=== PATIENT | female | born 2000 | race Caucasian/White ===

== ENCOUNTER 2018-11-13 03:56 | Emergency (ER) | payer BC, SELFPAY ==
--- NOTE | 2018-11-13 03:59 | ED.CHESTPAIN ---
HPI - Chest Pain General Chief Complaint: Chest Pain Stated Complaint: Chest pain / SOB Time Seen by Provider: 11/13/18 03:59 Source: patient Mode of arrival: ambulatory Limitations: no limitations History of Present Illness HPI narrative: 18-year-old female, occasional smoker presents with a chief complaint of episodes of chest pain since about 11:00 p.m.. It started as a sharp and stabbing pain in her central chest and she denies any radiation. She states the pain hurts with a deep breath and improves with rest. Additionally it hurts with motion and palpation. She has had no fever chills. About 2-3 weeks ago the patient had flu and bronchitis but has not had much noise sneezing or coughing since. She denies any injury nor fever or chills. She denies any productive cough. She denies recent travel, history of blood clot, cancer or hemoptysis. MD complaint: chest pain Onset (ago): hour(s) Duration: intermittent Onset: during rest Pain location: substernal Severity: mild Quality: sharp Pain radiation: none Relieving factors: rest Exacerbating factors: inspiration and palpation Context: recent illness Treatments prior to arrival chest pain: none Related Data Allergies Allergy/AdvReac Type Severity Reaction Status Date / Time No Known Drug Allergies Allergy Verified 11/13/18 04:34 Review of Systems Constitutional Denies chills, Denies fever(s), Denies lethargy and Denies weakness Eyes Denies change in vision, Denies eye discharge, Denies irritation and Denies loss of vision ENT Ears, Nose, Mouth, and Throat: Denies change in voice, Denies neck pain and Denies sore throat Cardiovascular Reports chest pain, Denies irregular heart rhythm, Denies lightheadedness, Denies palpitations, Denies dyspnea, Denies dyspnea on exertion and Denies orthopnea Respiratory Denies cough, Denies dyspnea, Denies dyspnea on exertion and Denies wheezing Gastrointestinal Gastrointestinal: Denies abdominal pain, Denies change in bowel habits, Denies diarrhea, Denies nausea and Denies vomiting Genitourinary Denies hematuria, Denies flank pain, Denies urinary incontinence and Denies urinary urgency Musculoskeletal Denies neck pain Integumentary/Breasts Denies pruritus, Denies erythema, Denies rash and Denies wounds Neurologic Denies confusion, Denies loss of vision and Denies weakness Psychiatric Denies anxiety, Denies confusion, Denies depression, Denies homicidal ideation and Denies suicidal ideation Endocrine Denies palpitations Hematologic/Lymphatic Denies easy bruising Allergic/Immunologic Denies wheezing PFSH Social History Smoking Status: Current some day smoker Social History Smoking Status: Current some day smoker Exam Narrative Exam Narrative: GENERAL: 18-year-old female resting comfortably, anxious HEAD: Atraumatic. Normocephalic. No temporal or scalp tenderness. EYES: Pupils equal round and reactive. Extraocular motions intact. No scleral icterus. No injection or drainage. ENT: Nose without bleeding, purulent drainage or septal hematoma. Throat without erythema, tonsillar hypertrophy or exudate. Uvula midline. Airway patent. NECK: Trachea midline. No JVD or lymphadenopathy. Supple, nontender, no meningeal signs. CARDIOVASCULAR: Regular rate and rhythm without murmurs, gallops, or rubs. RESPIRATORY: Clear to auscultation. Breath sounds equal bilaterally. No wheezes, rales, or rhonchi. Reproducible epigastric and anterior chest pain GASTROINTESTINAL: Abdomen soft, non-tender, nondistended. No hepato-splenomegaly, or palpable masses. No guarding. EXTREMITIES: No clubbing, cyanosis, or edema. No joint tenderness, effusion, or edema noted. BACK: Nontender without deformity or crepitance. No flank tenderness. NEURO: AOx3. SKIN: No rash or erythema. Initial Vital Signs Initial Vital Signs: Vital Signs Temperature 98.5 F 11/13/18 04:00 Pulse Rate 82 11/13/18 04:00 Respiratory Rate 16 11/13/18 04:00 Blood Pressure 122/78 11/13/18 04:00 Pulse Oximetry 100 11/13/18 04:00 Course Orders Ordered: ED Orders 11/13/18 EKG-12 Lead Stat 11/13/18 04:08 XR chest 2V Stat 11/13/18 04:22 Complete Blood Count AUTO DIFF Stat Comprehensive Metabolic Panel Stat Lipase Stat Troponin I Stat Discontinued Medications Ketorolac Tromethamine (Toradol) 30 mg IM NOW ONE Stop: 11/13/18 04:10 Last Admin: 11/13/18 04:14 Dose: 30 mg Vital Signs - 8 hr 11/13/18 04:00 Temperature 98.5 F Pulse Rate 82 Respiratory Rate 16 Blood Pressure 122/78 Pulse Oximetry 100 MDM - Chest Pain Differential Diagnosis Likely pneumothorax, stable angina, unstable angina pectoris, atypical chest pain, st elevation myocardial infarction, chest pain and biliary colic Medical Records Data Attestation: I reviewed the patient's medical records. Lab Data Attestation: I reviewed the patient's lab results. Result diagrams: 11/13/18 04:22 11/13/18 04:22 Lab Results 11/13/18 Range/Units 04:22 WBC 10.0 (4.5-11.0) X10^3/uL RBC 4.87 (4.0-5.2) X10^6/uL Hgb 15.5 (12.0-16.0) g/dL Hct 44.8 (36-46) % MCV 92.0 (80-100) fL MCH 31.9 (26-34) PG MCHC 34.6 (30-36) % RDW 13.3 (11.6-14.8) % Plt Count 203 (150-400) X10^3/uL Neut % (Auto) 76.9 H (50-75) % Lymph % (Auto) 15.1 L (25-40) % [place] % (Auto) 5.3 (3-14) % Eos % (Auto) 2.1 (2-4) % Baso % (Auto) 0.6 (0-2) % Neut # (Auto) 7700 H (6698-5327) /uL Lymph # (Auto) 1500 (9051-6696) /uL [place] # (Auto) 500 (0-900) /uL Eos # (Auto) 200 (0-450) /uL Baso # (Auto) 100 (0-100) /uL ECG Data Attestation: I personally reviewed and interpreted this ECG as follows: Prior ECG tracings: not available for review Interpretation: EKG is normal sinus rhythm rate [67 ] and free of any signs of ischemia or ectopy. No ST segmental elevation or depression. No T wave inversions Discharge Plan Departure Patient Disposition: Home Clinical Impression: Atypical chest pain, Acute costochondritis Instructions: DI for Atypical Chest Pain Activity Restrictions/Additional Instructions: *You have been diagnosed with [ atypical chest pain, costochondritis ] *What to do: *Take medications as directed: tylenol / motrin for pain *Follow up with your primary care provider in 2-3 days, call for an appointment. Let them know you were seen in the Emergency Department and that we ask that you be seen in follow up *Return to ER if you should have any new, worsening or concerning symptoms
[2018-11-13 04:00] VITALS: BP 122/78; PULSE 82; RESP 16; TEMP 36.9; O2SAT 100; BMI 28.2
--- NOTE | 2018-11-13 04:08 | DI.RAD.S_ITS ---
PROCEDURE: XR CHEST 2V INDICATIONS: shortness of breath TECHNIQUE: 2 views of the chest were acquired. COMPARISON: None. FINDINGS: Surgical changes and devices: None. Lungs and pleura: Lungs are clear. No pleural effusions or pneumothorax. Mediastinum: Mediastinal contours are normal. Heart size is normal. Bones and chest wall: No suspicious bony abnormalities. Soft tissues appear unremarkable. IMPRESSION: No acute cardiopulmonary disease process. Dictated by: Leidy Nelson MD, PhD on 11/13/2018 at 8:16 Approved by: Leidy Nelson MD, PhD on 11/13/2018 at 8:17
[2018-11-13] MEDS: KETOROLAC 60 MG/2 ML VIAL 30 MG IM (04:14)
[2018-11-13 04:36] LABS: Add Manual Diff / Slide Review NO; Basophils Absolute Auto 100 /uL (0-100); Basophils Percent Auto 0.6 % (0-2); Eosinophils Absolute Auto 200 /uL (0-450); Eosinophils Percent Auto 2.1 % (2-4); Hematocrit 44.8 % (36-46); Hemoglobin 15.5 g/dL (12.0-16.0); Lymphocytes Absolute Auto 1500 /uL (1100-4500); Lymphocytes Percent Auto 15.1 % (25-40); Mean Corpuscular HGB Conc 34.6 % (30-36); Mean Corpuscular Hemoglobin 31.9 PG (26-34); Monocytes Absolute Auto 500 /uL (0-900); Monocytes Percent Auto 5.3 % (3-14); Neutrophils Absolute Auto 7700 /uL (1500-7000); Neutrophils Percent Auto 76.9 % (50-75); Platelet Count 203 X10^3/uL (150-400); Red Blood Cell Count 4.87 X10^6/uL (4.0-5.2); Red Cell Distribution Width 13.3 % (11.6-14.8)
[2018-11-13 04:40] LABS: HEMOLYSIS < 15 (0-50); Sodium 141 mmol/L (137-145)
[2018-11-13 04:43] LABS: Alanine Aminotransferase 28 IU/L (9-52); Albumin 4.7 g/dL (3.5-5.0); Albumin Globulin Ratio 1.6 (1.0-2.8); Alkaline Phosphatase 54 U/L (38-126); Aspartate Aminotransferase 23 IU/L (14-36); Bilirubin Total 0.5 mg/dL (0.2-1.3); Blood Urea Nitrogen 18 mg/dL (7-17); Calcium 9.9 mg/dL (8.4-10.2); Carbon Dioxide 26 mmol/L (22-32); Chloride 105 mmol/L (98-107); Estimated Glomerular Filt Rate > 60.0 mL/min (>60); Globulin 2.9 g/dL (1.7-4.1); Glucose 97 mg/dL (70-100); Lipase 164 U/L (23-300); Potassium 4.6 mmol/L (3.4-5.1); Total Protein 7.6 g/dL (6.3-8.2)
--- NOTE | 2018-11-13 04:48 | ED_ITS ---
HPI - Chest Pain General Chief Complaint: Chest Pain Stated Complaint: Chest pain / SOB Time Seen by Provider: 11/13/18 03:59 Source: patient Mode of arrival: ambulatory Limitations: no limitations History of Present Illness HPI narrative: 18-year-old female, occasional smoker presents with a chief complaint of episodes of chest pain since about 11:00 p.m.. It started as a sharp and stabbing pain in her central chest and she denies any radiation. She states the pain hurts with a deep breath and improves with rest. Additionally it hurts with motion and palpation. She has had no fever chills. About 2-3 weeks ago the patient had flu and bronchitis but has not had much noise sneezing or coughing since. She denies any injury nor fever or chills. She denies any productive cough. She denies recent travel, history of blood clot, cancer or hemoptysis. MD complaint: chest pain Onset (ago): hour(s) Duration: intermittent Onset: during rest Pain location: substernal Severity: mild Quality: sharp Pain radiation: none Relieving factors: rest Exacerbating factors: inspiration and palpation Context: recent illness Treatments prior to arrival chest pain: none Related Data Allergies Allergy/AdvReac Type Severity Reaction Status Date / Time No Known Drug Allergies Allergy Verified 11/13/18 04:34 Review of Systems Constitutional Denies chills, Denies fever(s), Denies lethargy and Denies weakness Eyes Denies change in vision, Denies eye discharge, Denies irritation and Denies loss of vision ENT Ears, Nose, Mouth, and Throat: Denies change in voice, Denies neck pain and Denies sore throat Cardiovascular Reports chest pain, Denies irregular heart rhythm, Denies lightheadedness, Denies palpitations, Denies dyspnea, Denies dyspnea on exertion and Denies orthopnea Respiratory Denies cough, Denies dyspnea, Denies dyspnea on exertion and Denies wheezing Gastrointestinal Gastrointestinal: Denies abdominal pain, Denies change in bowel habits, Denies diarrhea, Denies nausea and Denies vomiting Genitourinary Denies hematuria, Denies flank pain, Denies urinary incontinence and Denies urinary urgency Musculoskeletal Denies neck pain Integumentary/Breasts Denies pruritus, Denies erythema, Denies rash and Denies wounds Neurologic Denies confusion, Denies loss of vision and Denies weakness Psychiatric Denies anxiety, Denies confusion, Denies depression, Denies homicidal ideation and Denies suicidal ideation Endocrine Denies palpitations Hematologic/Lymphatic Denies easy bruising Allergic/Immunologic Denies wheezing PFSH Social History Smoking Status: Current some day smoker Social History Smoking Status: Current some day smoker Exam Narrative Exam Narrative: GENERAL: 18-year-old female resting comfortably, anxious HEAD: Atraumatic. Normocephalic. No temporal or scalp tenderness. EYES: Pupils equal round and reactive. Extraocular motions intact. No scleral icterus. No injection or drainage. ENT: Nose without bleeding, purulent drainage or septal hematoma. Throat without erythema, tonsillar hypertrophy or exudate. Uvula midline. Airway patent. NECK: Trachea midline. No JVD or lymphadenopathy. Supple, nontender, no meningeal signs. CARDIOVASCULAR: Regular rate and rhythm without murmurs, gallops, or rubs. RESPIRATORY: Clear to auscultation. Breath sounds equal bilaterally. No wheezes , rales, or rhonchi. Reproducible epigastric and anterior chest pain GASTROINTESTINAL: Abdomen soft, non-tender, nondistended. No hepato-splenomegaly , or palpable masses. No guarding. EXTREMITIES: No clubbing, cyanosis, or edema. No joint tenderness, effusion, or edema noted. BACK: Nontender without deformity or crepitance. No flank tenderness. NEURO: AOx3. SKIN: No rash or erythema. Initial Vital Signs Initial Vital Signs: Vital Signs Temperature 98.5 F 11/13/18 04:00 Pulse Rate 82 11/13/18 04:00 Respiratory Rate 16 11/13/18 04:00 Blood Pressure 122/78 11/13/18 04:00 Pulse Oximetry 100 11/13/18 04:00 Course Orders Ordered: ED Orders 11/13/18 EKG-12 Lead Stat 11/13/18 04:08 XR chest 2V Stat 11/13/18 04:22 Complete Blood Count AUTO DIFF Stat Comprehensive Metabolic Panel Stat Lipase Stat Troponin I Stat Discontinued Medications Ketorolac Tromethamine (Toradol) 30 mg IM NOW ONE Stop: 11/13/18 04:10 Last Admin: 11/13/18 04:14 Dose: 30 mg Vital Signs - 8 hr 11/13/18 04:00 Temperature 98.5 F Pulse Rate 82 Respiratory Rate 16 Blood Pressure 122/78 Pulse Oximetry 100 MDM - Chest Pain Differential Diagnosis Likely pneumothorax, stable angina, unstable angina pectoris, atypical chest pain, st elevation myocardial infarction, chest pain and biliary colic Medical Records Data Attestation: I reviewed the patient's medical records. Lab Data Attestation: I reviewed the patient's lab results. Result diagrams: 11/13/18 04:22 11/13/18 04:22 Lab Results 11/13/18 Range/Units 04:22 WBC 10.0 (4.5-11.0) X10^3/uL RBC 4.87 (4.0-5.2) X10^6/uL Hgb 15.5 (12.0-16.0) g/dL Hct 44.8 (36-46) % MCV 92.0 (80-100) fL MCH 31.9 (26-34) PG MCHC 34.6 (30-36) % RDW 13.3 (11.6-14.8) % Plt Count 203 (150-400) X10^3/uL Neut % (Auto) 76.9 H (50-75) % Lymph % (Auto) 15.1 L (25-40) % [place] % (Auto) 5.3 (3-14) % Eos % (Auto) 2.1 (2-4) % Baso % (Auto) 0.6 (0-2) % Neut # (Auto) 7700 H (3142-7459) /uL Lymph # (Auto) 1500 (6687-2070) /uL [place] # (Auto) 500 (0-900) /uL Eos # (Auto) 200 (0-450) /uL Baso # (Auto) 100 (0-100) /uL ECG Data Attestation: I personally reviewed and interpreted this ECG as follows: Prior ECG tracings: not available for review Interpretation: EKG is normal sinus rhythm rate [67 ] and free of any signs of ischemia or ectopy. No ST segmental elevation or depression. No T wave inversions Discharge Plan Departure Patient Disposition: Home Clinical Impression: Atypical chest pain, Acute costochondritis Instructions: DI for Atypical Chest Pain Activity Restrictions/Additional Instructions: *You have been diagnosed with [ atypical chest pain, costochondritis ] *What to do: *Take medications as directed: tylenol / motrin for pain *Follow up with your primary care provider in 2-3 days, call for an appointment. Let them know you were seen in the Emergency Department and that we ask that you be seen in follow up *Return to ER if you should have any new, worsening or concerning symptoms
[2018-11-13 04:53] VITALS: BP 105/65; PULSE 77; RESP 17; O2SAT 99
[2018-11-13 04:56] LABS: Troponin I < 0.012 ng/mL (0.01-0.034)
[2018-11-13 05:11] VITALS: BP 110/70; PULSE 61; RESP 16; O2SAT 98
== END 2018-11-13 05:11 | disposition home or self-care (01) ==
PROVIDERS: Emergency Provider Emergency Medicine
DX: M94.0 Chondrocostal junction syndrome [Tietze] (principal); R07.89 Other chest pain
CPT/HCPCS: 36415; 71046; 80053; 83690; 84484; 85025; 93005; 96372; 99282; 99285; J1885

== ENCOUNTER → 2021-11-16 10:44 | Outpatient (CLI) | payer BC, MEDICAID, SELFPAY ==
--- NOTE | 2021-11-16 10:44 | DI.US.S_ITS ---
PROCEDURE: US OB <= 14 WEEKS FETUS INDICATIONS: DATES OUTSIDE/PRIOR DATING DATA: Last menstrual period (LMP): Unknown. LMP-based estimated date of delivery (GRIFFIN): Not applicable. First dating scan (date and location): 11/16/2021. Estimated date of delivery (GRIFFIN) from first dating scan: 07/17/2022. TECHNIQUE: Real-time scanning was performed of the fetus and maternal pelvic organs, with image documentation. Endovaginal scanning was also performed to better visualize the fetus and maternal ovaries. COMPARISON: None. FINDINGS: There is an intrauterine gestational sac measuring 5 mm, corresponding to a 5 week 2 day gestation. No cardiac activity is seen. No yolk sac is seen. No pole. Maternal organs: Ovaries right ovarian corpus luteal cyst is present. Left ovary within normal limits.. IMPRESSION: 1. Intrauterine gestational sac without pole or yolk sac seen. Continued clinical and sonographic follow-up is recommended to assess for viability. We strive to produce accurate, complete, and clear reports of imaging services. To assist us in improving patient care, this report was composed using standard report templates and voice recognition software. Therefore, it may contain abnormal punctuation, insertions and/or omissions. Occasional wrong-word or sound-alike substitutions may occur. Though we review the report and make efforts to correct it, we do recommend that the report be read carefully in proper context to recognize any text inaccuracies. Dictated by: Sam Naranjo M.D. on 11/16/2021 at 15:18 Approved by: Sam Naranjo M.D. on 11/16/2021 at 16:15
== END ==
PROVIDERS: Referring Provider Obstetrics & Gynecology; Visit Provider Obstetrics & Gynecology
DX: Z36.87 Encounter for antenatal screening for uncertain dates (principal); O36.80X0 Pregnancy with inconclusive fetal viability, not applicable or unspecified
CPT/HCPCS: 76801; 76817

== ENCOUNTER → 2021-12-22 15:11 | Outpatient (CLI) | payer BC, MEDICAID, SELFPAY ==
[2021-12-22 16:09] LABS: Specimen Label NATERA KIT
== END ==
PROVIDERS: Referring Provider Obstetrics & Gynecology; Visit Provider Obstetrics & Gynecology
DX: Z34.81 Encounter for supervision of other normal pregnancy, first trimester (principal)
CPT/HCPCS: 36415

== ENCOUNTER → 2022-02-08 16:33 | Outpatient (CLI) | payer BC, MEDICAID, SELFPAY ==
[2022-02-08 17:36] LABS: Add Manual Diff / Slide Review NO; Basophils Absolute Auto 0 /uL (0-100); Basophils Percent Auto 0.5 % (0-2); Eosinophils Absolute Auto 300 /uL (0-450); Eosinophils Percent Auto 2.8 % (2-4); Hematocrit 36.3 % (36-46); Hemoglobin 12.8 g/dL (12.0-16.0); Lymphocytes Absolute Auto 2100 /uL (1100-4500); Lymphocytes Percent Auto 22.6 % (25-40); Mean Corpuscular HGB Conc 35.4 % (30-36); Mean Corpuscular Hemoglobin 32.1 PG (26-34); Mean Corpuscular Volume 90.8 fL (80-100); Monocytes Absolute Auto 900 /uL (0-900); Monocytes Percent Auto 9.3 % (3-14); Neutrophils Absolute Auto 6100 /uL (1500-7000); Neutrophils Percent Auto 64.8 % (50-75); Platelet Count 193 X10^3/uL (150-400); Red Cell Distribution Width 13.2 % (11.6-14.8); White Blood Cell Count 9.4 X10^3/uL (4.5-11.0)
[2022-02-08 20:36] LABS: Hepatitis B Surface Antigen NEGATIVE s/c (NEGATIVE); Rubella Antibody IgG 37.3 IU/mL (>15)
[2022-02-08 20:43] LABS: HIV 1 & 2 Ab/Ag 4th Gen Combo NEGATIVE (NEGATIVE); Hep C Virus Ab w/Reflex Quant NEGATIVE s/c (NEGATIVE)
[2022-02-10 07:11] LABS: Varicella IgG Antibody 191 index (Immune >165)
[2022-02-10 08:05] LABS: RPR Screen Non Reactive (Non Reactive)
== END ==
PROVIDERS: Referring Provider Obstetrics & Gynecology; Visit Provider Obstetrics & Gynecology
DX: Z34.81 Encounter for supervision of other normal pregnancy, first trimester (principal); Z3A.08 8 weeks gestation of pregnancy
CPT/HCPCS: 36415; 80055; 86787; 86803; 86850; 86900; 86901; 87389

== ENCOUNTER → 2022-03-08 12:57 | Outpatient (CLI) | payer BC, OTHER, MEDICAID, SELFPAY ==
--- NOTE | 2022-03-08 12:58 | DI.US.S_ITS ---
PROCEDURE: US OB >= 14 WEEKS FETUS INDICATIONS: 20 Week Anatomy Scan OUTSIDE/PRIOR DATING DATA: Last menstrual period (LMP): Unknown. LMP-based estimated date of delivery (GRIFFIN): Unknown. First dating scan (date and location): 12/13/2021. Estimated date of delivery (GRIFFIN) from first dating scan: 07/20/2022. TECHNIQUE: Real-time scanning was performed of the fetus, with image documentation and biometric measurements. COMPARISON: [facility], US, OB >= 14 WEEKS FETUS, 02/08/2022, 16:31. FINDINGS: General: A single living intrauterine gestation is present. Presentation: Breech. Placenta: Placental position is posterior , without previa. Amniotic fluid index: 15 cm, normal range is 5-24 cm. heart rate: 155 beats per minute. Maternal cervical canal: 4.4 cm long. Normal lower limit is 2.5 cm. biometrics: Biparietal diameter: 5.0 cm 21 weeks 1 day Head circumference: 18.9 cm 21 weeks 2 days Abdominal circumference: 16.3 cm 21 weeks 3 days Femur length: 3.7 cm 21 weeks 6 days Composite gestational age from initial scan: 20 weeks 6 days Composite gestational age from present scan: 21 weeks 3 days Estimated weight and percentile: 432 g, 81st percentile Anatomic survey: Neuro: Ventricles are non-dilated at less than 10 mm. Cisterna magna is normal at 3-11 mm. Cerebellum is normal in size and morphology. Nuchal skin fold: Normal at less than 6 mm between 14-21 weeks gestational age. Face: Nose and lips, facial profile are normal. Spine: No evidence for spina bifida. Heart: 4-chambered heart is present, with normal ventricular outflow tracts. Diaphragm: Diaphragm is intact. Stomach: Left-sided stomach is present. Kidneys: No hydronephrosis. Normal is less than 5 mm in 2nd trimester, less than 7 mm in 3rd trimester. Cord: 3-vessel cord has orthotopic insertion. Bladder: Normal in size. Extremities: All 4 extremities identified. IMPRESSION: Single live intrauterine with ultrasound gestational age today of 21 weeks 3 days. Anatomy is within normal limits. We strive to produce accurate, complete, and clear reports of imaging services. To assist us in improving patient care, this report was composed using standard report templates and voice recognition software. Therefore, it may contain abnormal punctuation, insertions and/or omissions. Occasional wrong-word or sound-alike substitutions may occur. Though we review the report and make efforts to correct it, we do recommend that the report be read carefully in proper context to recognize any text inaccuracies. Dictated by: Jennifer Martinez M.D. on 03/08/2022 at 16:32 Approved by: Jennifer Martinez M.D. on 03/08/2022 at 16:34
== END ==
PROVIDERS: Referring Provider Obstetrics & Gynecology; Visit Provider Obstetrics & Gynecology
DX: Z34.82 Encounter for supervision of other normal pregnancy, second trimester (principal); Z3A.21 21 weeks gestation of pregnancy
CPT/HCPCS: 76811

== ENCOUNTER → 2022-03-14 15:02 | Outpatient (CLI) | payer BC, OTHER, MEDICAID, SELFPAY ==
[2022-03-14 20:33] LABS: Urine N gonorrhoeae NOT DETECTED
[2022-03-14 20:34] LABS: Urine Chlamydia NOT DETECTED
[2022-03-16 21:58] LABS: AFP Value 56.1 ng/mL (.); Gest Age on Col Date 21.7 weeks (.); Gestational Age Ultrasound (.); Insulin Dep Diabetes No (.); OSBR Risk 1IN 10000 (.); Results Report (.); Test Results *Screen Negative* (.)
== END ==
PROVIDERS: Referring Provider Obstetrics & Gynecology; Visit Provider Obstetrics & Gynecology
DX: Z34.82 Encounter for supervision of other normal pregnancy, second trimester (principal); Z3A.21 21 weeks gestation of pregnancy
CPT/HCPCS: 36415; 82105; 87086; 87491; 87591

== ENCOUNTER 2022-04-03 17:42 | Emergency (ER) | payer BC, OTHER, MEDICAID, SELFPAY ==
[2022-04-03] VITALS (8 sets, daily range): BP systolic 111–117; BP diastolic 57–65; PULSE 116–148; RESP 18; TEMP 37–38.4; O2SAT 95–98; BMI 32.4
[2022-04-03] MEDS: ACETAMINOPHEN 325 MG TABLET 975 MG PO (18:00)
[2022-04-03 20:04] LABS: Influenza A - CEPHEID Flu A NEGATIVE (NEGATIVE); Influenza B - CEPHEID Flu B NEGATIVE (NEGATIVE); Respiratory Syncytial Virus Negative (Negative)
--- NOTE | 2022-04-03 20:18 | ED.URI ---
HPI - URI/Sore Throat General Chief Complaint: Upper Respiratory Symptoms Stated Complaint: COUGH SORE THROAT FEVER CHEST HURTS Time Seen by Provider: 04/03/22 20:03 Source: patient Mode of arrival: Ambulatory History of Present Illness HPI Narrative: Patient is a 22-year-old female who is currently 6 months presenting with fever sore throat. Says he has body aches fever chills ongoing for 1 day. Her chest hurts. She generally did not feel well. She is noted to be febrile and tachycardic here in the ED. she says she has a hard time feeding her throat hurt so badly. Related Data Home Medications Medication Instructions Recorded Confirmed omeprazole 20 mg tablet,delayed 20 mg PO DAILY 11/29/21 03/14/22 release prenat.vits,raul,lox-oeuv-fqomv 1 tab PO DAILY 12/07/21 03/14/22 Previous Rx's Medication Instructions Recorded ondansetron 4 mg disintegrating 4 mg PO Q6H PRN nausea and 11/23/21 tablet vomiting #30 tabs fluconazole 150 mg tablet 150 mg PO DAILY #1 tab 01/26/22 (Diflucan) hydrocortisone acetate 25 mg 25 mg SC DAILY #12 ea 03/14/22 rectal suppository (Anusol-HC) Allergies Allergy/AdvReac Type Severity Reaction Status Date / Time No Known Drug Allergies Allergy Verified 03/14/22 15:01 Review of Systems Review of Systems Narrative: GENERAL: See HPI HEENT: See HPI RESPIRATORY: Denies dyspnea, cough, wheezing, hemoptysis, sputum. CARDIOVASCULAR: Denies chest pain, palpitations, orthopnea, edema GASTROINTESTINAL: Denies nausea, vomiting, abdominal pain, diarrhea, constipation, melena. : Denies dysuria, frequency, incontinence, hematuria, urinary retention, flank pain. MUSCULOSKELETAL: Denies weakness, joint pain, or bony pain SKIN: No rash, no erythema, no pruritus NEUROLOGIC: Denies weakness, dizziness, headache, numbness, change in speech, confusion PSYCHIATRIC: No concerning psychosocial issues. 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 water heater temp set < 120 deg: Yes (will check) working smoke detector in home: Yes fire extinguisher in home: No carbon monox detector in home: Yes firearms in home: Yes firearms unloaded and locked: Yes do you feel safe at home: Yes Smoking Status: Current some day smoker second hand exposure: No alcohol intake: former substance use type: marijuana (occassionally for nausea) during the past year weight has: remained stable well-balanced diet: about half the time (still getting nauseated) daily servings fruits/ve-4 caffeine: No (200mg OK) Type(s) of exercise: irregular exercise Smoking Status: Current some day smoker alcohol intake frequency: 0-2 drinks per day Substance Use Type: marijuana Exam Initial Vital Signs Initial Vital Signs: Vital Signs Temperature 101.1 F H 04/03/22 17:48 Pulse Rate 148 H 04/03/22 17:48 Respiratory Rate 18 04/03/22 17:48 Blood Pressure 117/57 L 04/03/22 17:48 Pulse Oximetry 98 04/03/22 17:48 Oxygen Delivery Method 04/03/22 17:48 GENERAL: Alert 22-year-old female appears to not feel well HEENT: Head atraumatic,EOMI, pupils reactive, face symmetric, moist mucous membranes PHARYNX: No erythema, no tonsillar exudate, no cervical lymphadenopathy CARDIOVASCULAR: Tachycardic regular no murmur RESPIRATORY: Breath sounds equal bilaterally, no wheezes rales or rhonchi. ABDOMEN: Soft, gravid nontender : No CVA tenderness EXTREMITIES: Normal range of motion, no clubbing or edema. Neurovascularly intact NEUROLOGICAL: Alert and oriented x4. SKIN: Warm, dry, no laceration, no petechiae, no rashes or lesions. Course Orders Ordered: ED Orders 04/03/22 18:01 Covid-19 + FLU A/B + RSV - PCR Stat Discontinued Medications Acetaminophen (Acetaminophen 325 Mg Tablet) 975 mg PO NOW ONE Stop: 04/03/22 17:56 Last Admin: 04/03/22 18:00 Dose: 975 mg Documented By: VANNA Sodium Chloride (Normal Saline 0.9%) 1,000 mls @ 1,000 mls/hr IV BOLUS ONE Stop: 04/03/22 21:18 Last Infusion: 04/03/22 21:46 Dose: 0 mls/hr Documented By: Admin: 04/03/22 20:41 Dose: 1,000 mls/hr Documented By: FRANKIE Vital Signs Vital signs: Vital Signs - 8 hr 04/03/22 17:48 04/03/22 18:00 04/03/22 18:48 Temperature 101.1 F H 101.1 F H 100.7 F H Pulse Rate 148 H Respiratory Rate 18 Blood Pressure 117/57 L Pulse Oximetry 98 Oxygen Delivery Method Room Air 04/03/22 18:49 04/03/22 19:07 04/03/22 19:08 Temperature 98.6 F Pulse Rate 132 H 137 H Respiratory Rate Blood Pressure 111/60 Pulse Oximetry 95 Oxygen Delivery Method Room Air 04/03/22 20:23 04/03/22 21:50 Temperature Pulse Rate 116 H 120 H Respiratory Rate Blood Pressure 111/65 Pulse Oximetry 95 Oxygen Delivery Method Room Air MDM - URI/Sore Throat Lab Data Labs: Lab Results 04/03/22 Range/Units 18:01 SARS-CoV-2 (PCR) Positive H (Negative) Influenza A (RT-PCR) Flu a negative (NEGATIVE) Influenza B (RT-PCR) Flu b negative (NEGATIVE) RSV (PCR) Negative (Negative) Urine Dip Bedside Urine Glucose Negative Bedside Urine Bilirubin - Negative Bedside Urine Ketone - Negative Urine Specific [place] 1.015 Bedside Urine Occult Blood - Negative Bedside Urine pH 6.0 Bedside Urine Protein - Negative Bedside Urine Urobilinogen - Negative Bedside Urine Nitrite - Negative Bedside Urine Leukocytes - Negative Esterase MDM Narrative Medical decision making narrative: The patient is noted to be febrile and tachycardic. Her COVID test is positive here. She is given 1 L of IV fluids and Tylenol. Heart rate has improved into the 119 range. She is not hypoxic she is very anxious and ready to go home. She is of UTI. Blood work was actually ordered but the nurse unfortunately did not draw it. We now have an answer for of why she is febrile and tachycardic. Patient is really wanting to go home. Discharge Plan Departure Patient Disposition: Home Clinical Impression: COVID-19 Instructions: DI for COVID-19 (Suspected or Confirmed ) Activity Restrictions/Additional Instructions: *You have been diagnosed with COVID *What to do: Increase fluids as tolerated. Tylenol as needed. Rest and hydrate. *Continue to take medications as directed Tylenol 1000 mg every 6 hours if needed for pain or fever *Follow up with your primary care provider in 2-3 days or call [phone] *Return to ER if you should have inability to tolerate fluids, dizziness lightheadedness heart palpitations or any new, worsening or concerning symptoms Prescriptions: No Action ondansetron 4 mg tablet,disintegrating 4 mg PO Q6H PRN (Reason: nausea and vomiting) Qty: 30 2RF fluconazole [Diflucan] 150 mg tablet 150 mg PO DAILY Qty: 1 0RF prenat.vits,raul,qxd-fkxj-padtz Tablet 1 tab PO DAILY hydrocortisone acetate [Anusol-HC] 25 mg suppository 25 mg SC DAILY Qty: 12 3RF omeprazole 20 mg tablet,delayed release (DR/EC) 20 mg PO DAILY Visit Report Forms: Patient Portal/API
[2022-04-03 20:22] LABS: COVID-19 CEPHEID PCR (VTM/NP) POSITIVE (Negative)
[2022-04-03] MEDS: SODIUM CHLORIDE 0.9% 1,000 ML 1000 ML IV (20:41)
== END 2022-04-03 21:51 | disposition home or self-care (01) ==
PROVIDERS: Emergency Provider Emergency Medicine
DX: U07.1 COVID-19 (principal); R00.0 Tachycardia, unspecified
CPT/HCPCS: 0241U; 81003; 96360; 99284

== ENCOUNTER → 2022-04-18 12:22 | Outpatient (CLI) | payer BC, OTHER, MEDICAID, SELFPAY ==
[2022-04-18 13:42] LABS: Hematocrit 35.4 % (36-46); Hemoglobin 12.1 g/dL (12.0-16.0)
[2022-04-18 14:22] LABS: GTT (PREG) 1 Hour PP 50gm Dose 95 mg/dL (76-139)
== END ==
PROVIDERS: Referring Provider Obstetrics & Gynecology; Visit Provider Obstetrics & Gynecology
DX: Z34.82 Encounter for supervision of other normal pregnancy, second trimester (principal); Z3A.26 26 weeks gestation of pregnancy
CPT/HCPCS: 82950; 85014; 85018

== ENCOUNTER 2022-05-03 16:44 | Outpatient (CLI) | payer BC, OTHER, MEDICAID, SELFPAY ==
--- NOTE | 2022-05-03 16:59 | DI.US.S_ITS ---
PROCEDURE: US OB LIMITED INDICATIONS: Provider orders OUTSIDE/PRIOR DATING DATA: Last menstrual period (LMP): Unknown. LMP-based estimated date of delivery (GRIFFIN): Unknown. First dating scan (date and location): 11/16/2021. Estimated date of delivery (GRIFFIN) from first dating scan: 07/17/2022. TECHNIQUE: Real-time scanning was performed of the fetus, with image documentation. Endovaginal scanning: None COMPARISON: None. FINDINGS: A single living intrauterine gestation is present. Presentation: Breech. Placenta: Placental position is posterior, without previa. Amniotic fluid index: 10.3 cm, normal range is 5-24 cm. heart rate: 150 beats per minute. Maternal cervical canal: 3 cm long. Normal lower limit is 2.5 cm. Clinically estimated gestational age: 29 week 2 day IMPRESSION: Para single live intrauterine consistent with a 29 week 2 day gestation by dates. Cervix 3 cm in length Approved by: Miki Dumas M.D. on 05/03/2022 at 17:51
[2022-05-03 18:09] LABS: Appearance Urine UA CLEAR; Bilirubin Urine UA NEGATIVE (NEGATIVE); Color Urine UA YELLOW; Glucose Urine UA NEGATIVE (Negative); Ketones Urine UA NEGATIVE (NEGATIVE); Leukocyte Esterase Urine UA NEGATIVE (NEGATIVE); Nitrite Urine UA NEGATIVE (Negative); Occult Blood Urine UA NEGATIVE (Negative); Protein Urine UA NEGATIVE (Negative); Specific Gravity Urine UA <=1.005 (1.000-1.035); Urobilinogen Urine UA 0.2 E.U./dL (0.2)
[2022-05-03 18:16] LABS: RBC Urine None Seen (0-5/HPF); Squamous Epithelial Cell Urine 10-30 /HPF (0-5/HPF); WBC Urine 1-5/HPF (0-5/HPF)
[2022-05-03 18:17] LABS: Amorphous Sediment Urine 1+; Bacteria Urine Few (2-10); Culture Indicated Urine Cult Not Indicated; Renal Epithelial Cells Urine 1-5/HPF (0-1/HPF)
[2022-05-03 18:25] LABS: Fetal Fibronectin Negative
[2022-05-03 18:39] VITALS: BP 130/83; PULSE 116; RESP 20; TEMP 36.8
== END 2022-05-03 18:40 | disposition home or self-care (01) ==
LOC: LABOR 17:11 → OB 05-04 14:26
PROVIDERS: Referring Provider Obstetrics & Gynecology; Visit Provider Obstetrics & Gynecology
DX: O26.893 Other specified pregnancy related conditions, third trimester (principal); Z3A.28 28 weeks gestation of pregnancy
CPT/HCPCS: 59025; 76815; 76817; 81001; 82731; G0378; G0379

== ENCOUNTER 2022-06-26 11:51 | Outpatient (CLI) | payer BC, OTHER, MEDICAID, SELFPAY ==
[2022-06-26] MEDS: TERBUTALINE 1 MG/ML VIAL 0.25 MG SUBCUT (12:27)
[2022-06-26 14:28] LABS: Appearance Urine UA CLEAR; Bilirubin Urine UA NEGATIVE (NEGATIVE); Color Urine UA YELLOW; Glucose Urine UA NEGATIVE (Negative); Ketones Urine UA 2+ (NEGATIVE); Leukocyte Esterase Urine UA NEGATIVE (NEGATIVE); Nitrite Urine UA NEGATIVE (Negative); Occult Blood Urine UA NEGATIVE (Negative); Protein Urine UA 1+ (Negative); Urobilinogen Urine UA 0.2 E.U./dL (0.2)
[2022-06-26 14:36] LABS: pH Urine UA 6.5 (4.5-8.0)
== END 2022-06-26 14:00 | disposition home or self-care (01) ==
LOC: LABOR 13:04 → OB 06-30 08:29
PROVIDERS: Referring Provider Obstetrics & Gynecology; Visit Provider Obstetrics & Gynecology
DX: O32.1XX0 Maternal care for breech presentation, not applicable or unspecified (principal); Z3A.36 36 weeks gestation of pregnancy
CPT/HCPCS: 59025; 59412; 76815; 81003; 96372; G0378; G0379

== ENCOUNTER → 2022-07-03 15:52 | Outpatient (CLI) | payer BC, OTHER, MEDICAID, SELFPAY ==
[2022-07-04 17:59] LABS: Strep Grp B PCR NEG for Grp B Strep
== END ==
PROVIDERS: Visit Provider Obstetrics & Gynecology
DX: Z36.85 Encounter for antenatal screening for Streptococcus B (principal); Z3A.37 37 weeks gestation of pregnancy
CPT/HCPCS: 87653

== ENCOUNTER 2022-07-11 05:37 | Inpatient (IN) | payer BC, OTHER, MEDICAID, SELFPAY ==
--- NOTE | 2022-07-11 06:01 | PM.OBHP.IH.1 ---
OB HPI Date/Time Date of admission: 07/11/22 Date Patient Seen: 07/11/22 Time Patient Seen: 06:01 History of Present Condition Chief complaint: C Section GRIFFIN Calculator Estimated Delivery Date Method Current WG Current Estimate 07/20/22 Ultrasound #2 38w 5d Other Estimates 07/23/22 Ultrasound #1 38w 2d Estimated Gestational Age (weeks): 39 : 2 Para: 0 care: good care, initiated at week # (8), number of visits (9) and pounds weight gain (66) Dating criteria OB: LMP confirmed by 1st trimester US Ultrasounds: normal 1st trimester US and normal mid trimester US Obstetrical complications: none Medical complications OB: none Indications Operative indications ( section): breech presentation (Failed external version) Preadmission Labs Last OB Lab Results: Blood Type O Positive 07/11/22 06:15 Antibody Screen Negative 07/11/22 06:15 Hematocrit 33.7 % (36-46) L 07/11/22 06:15 Hemoglobin 11.2 g/dL (12.0-16.0) L 07/11/22 06:15 Hepatitis B Surface Antigen Negative s/c (NEGATIVE) 02/08/22 16:47 Hepatitis C Antibody Negative s/c (NEGATIVE) 02/08/22 16:47 Rubella Antibody 37.3 IU/mL (>15) 02/08/22 16:47 Varicella-Zoster IgG Antibody 191 index (Immune >165) 02/08/22 16:47 Glucose 1 Hour 95 mg/dL (76-139) 04/18/22 12:25 Group B Streptococcus (PCR) Neg for grp b strep 07/03/22 15:52 -: Chlamydia screen: negative, Gonorrhea screen: negative and Urine: negative -: PAP smear: Normal Genetic Screens: Cell-free DNA: Normal and Alpha-fetoprotein: Normal External Labs -: Urine: negative Prior (ies) Past Pregnancies Del. Date GA/Weeks Labor Lgth Wt Sex Route Outcome Anesthesia Place Delv Breastfeed Preg Comp Name 08/18/20 spontaneous Delivery Date: 08/18/20 Last Updated by: Silke Marr R.N. SAB, took number of weeks to pass, even with MTX, found 2nd sac weeks later was still bleeding Evaluation Evaluation Baseline heart rate: 140 Variability: Moderate (11-25) monitor accelerations: Present Monitor Decelerations: Absent Status: Category l PFSH Medical History Acid reflux Anxiety Depression Surgical History History of placement of ear tubes Family History Grandmother Diabetes mellitus Social History marital status: unmarried,living together number of children: 0 household members: significant other lives independently: Yes housing: other pets and animals: Yes (Fish, aware of toxo) education level: high school occupational status: employed 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 water heater temp set < 120 deg: Yes (will check) working smoke detector in home: Yes fire extinguisher in home: No carbon monox detector in home: Yes firearms in home: Yes firearms unloaded and locked: Yes do you feel safe at home: Yes Smoking Status: Current some day smoker second hand exposure: No alcohol intake: former substance use type: marijuana during the past year weight has: remained stable well-balanced diet: about half the time daily servings fruits/ve-4 caffeine: No (200mg OK) Type(s) of exercise: irregular exercise Meds Home Medications and Allergies Home Medications Medication Instructions Recorded Confirmed Type prenat.vits,raul,eqp-rswj-bpfxj 1 tab PO DAILY 12/07/21 07/11/22 History omeprazole 20 mg capsule,delayed 20 mg PO DAILY #30 caps 04/14/22 07/11/22 Rx release nystatin 100,000 unit/gram topical 1 applic topical TID PRN external 06/30/22 07/11/22 Rx cream itching/irritation #30 grams Allergies Allergy/AdvReac Type Severity Reaction Status Date / Time No Known Drug Allergies Allergy Verified 07/03/22 13:28 OB Exam Narrative Exam Narrative: Generally: Patient is sitting up in bed, no acute distress Lungs: Clear to auscultation bilaterally Cardiovascular: Regular rate and rhythm Fundal height: 39 cm Estimated weight 7-1/2 lb Extremities: 1+ edema Objective Labs Result Diagrams: 07/11/22 06:15 Assessment and Plan Assessment and Plan Assessment and Plan narrative: Assessment: 22-year-old 2 para 0 at an estimated gestational age of 39 weeks gestation with persistent breech presentation Plan: Primary low-transverse section The risks, benefits, and alternatives to the procedure were explained to the patient. The risks including bleeding, infection, injury to the bowel, bladder, or ureters. She understands these risks and agrees to proceed. A full par Q was held and consent form was signed.
--- NOTE | 2022-07-11 06:05 | PM.PREOP ---
Pre-operative Note COVID-19 COVID-19 status: Negative Result date/Date tested (Pos, Neg/Pending): 07/11/22 Criteria for continued procedure: Non-surgical alternatives not available or appropriate per current SOC Interval Note History & Physical reviewed/Exam performed by Physician: Yes Changes to H&P: No H&P completed within 30 days and has changed as indicated here:: 07/11/22
[2022-07-11 06:35] LABS: Add Manual Diff / Slide Review NO; Basophils Absolute Auto 0 /uL (0-100); Basophils Percent Auto 0.5 % (0-2); Eosinophils Absolute Auto 200 /uL (0-450); Eosinophils Percent Auto 1.9 % (2-4); Hematocrit 33.7 % (36-46); Hemoglobin 11.2 g/dL (12.0-16.0); Lymphocytes Absolute Auto 2300 /uL (1100-4500); Lymphocytes Percent Auto 24.1 % (25-40); Mean Corpuscular HGB Conc 33.3 % (30-36); Mean Corpuscular Hemoglobin 25.9 PG (26-34); Mean Corpuscular Volume 77.7 fL (80-100); Monocytes Absolute Auto 800 /uL (0-900); Monocytes Percent Auto 8.2 % (3-14); Neutrophils Absolute Auto 6300 /uL (1500-7000); Neutrophils Percent Auto 65.3 % (50-75); Platelet Count 217 X10^3/uL (150-400); Red Blood Cell Count 4.34 X10^6/uL (4.0-5.2); Red Cell Distribution Width 15.4 % (11.6-14.8); White Blood Cell Count 9.7 X10^3/uL (4.5-11.0)
[2022-07-11] MEDS: LACTATED RINGERS 1,000 ML 100 ML IV ×4 (06:50→09:20)
[2022-07-11 07:28] LABS: COVID19 -Nasal RAPID Negative (Negative)
[2022-07-11] MEDS: CITRIC ACID/SODIUM CITRATE 15 ML SOLUTION 30 ML PO (08:24)
[2022-07-11] MEDS: CEFAZOLIN 2 GM/100 ML PREMIX 100 ML IV (08:35)
--- NOTE | 2022-07-11 09:06 | SUR.OPER ---
Supine on Padded OR bed, head on pillow, safety belt at thigh, arms secured on padded arm boards at <90 degrees abduction. Bump under right buttock. Legs uncrossed with pillow under knees, gel pad to heels, tape over blanket to lower legs. Gel pad under bilateral heels and gel pad placed between urinary catheter tubing and posterior upper leg.
--- NOTE | 2022-07-11 09:12 | SUR.OPER ---
Viable baby girl delivered at 0903. Placenta delivered. Cord blood tubes X2 and placenta given to L&D RN.
[2022-07-11] MEDS: ACETAMINOPHEN IV 1,000 MG/100 ML VIAL 400 MG IV (09:17)
--- NOTE | 2022-07-11 09:43 | P.OP_ITS ---
Operative Date/Time/Diagnoses Date of procedure: 07/11/22 Time of procedure: 09:43 Pre-op diagnosis: Estimated gestational age of 39 weeks Persistent breech presentation Post-op diagnosis: same Procedure & Clinicians Procedure: Primary low-transverse section Same procedure as scheduled: Yes Indications: Estimated gestational age of 39 weeks Persistent breech presentation Surgeon: Sierra Post Yes if Unassisted: No Production Supervisor Off Shift: Katina Stafford Reason for Production Supervisor Off Shift: The assistant professor of anthropology was needed to retract upon entry into the abdomen and uterus. She assisted with fundal pressure in delivery of the infant. Upon closure of the uterus and abdomen she clipped suture and closed the contralateral fascia. Anesthesia Type: Spinal Operative Notes Findings: Live female in complete breech presentation Closure Type: primary Specimen(s): cord blood and placenta Intraoperative meds administered: Acetaminophen, Ketorolac and Pitocin Applied: Catheter (To continuous drainage) Estimated Blood Loss (mL): 500 Blood products transfused: none Procedure in detail: The patient was taken to the operating room where she was placed in the seated position. Spinal anesthesia was administered. She was then placed in the dorsal supine position with a leftward tilt. She was prepped and draped in the usual sterile fashion. A timeout was performed. After spinal analgesia was found to be adequate, a Pfannenstiel skin incision was made 2 fingerbreadths above the pubic symphysis and carried through to the underlying layer fascia. The fascia was nicked in the midline, and the incision extended bilaterally with the Mckeon scissors. The superior aspect of the fascial incision was grasped with a Woodbine clamps, elevated, and the underlying rectus muscles dissected off sharply and bluntly. Attention was then turned to the inferior aspect of this incision which in a similar fashion was grasped with a [place] clamps, elevated, and the underlying rectus muscles dissected off sharply and bluntly. The rectus muscles were in the midline. The peritoneum was identified, grasped between 2 hemostats, and entered sharply with the Metzenbaum scissors. This incision was extended superiorly and inferiorly with good visualization of the bladder. The bladder blade was inserted. The vesicouterine peritoneum was identified, grasped with the pickup, and entered sharply with the Metzenbaum scissors. This incision was extended bilaterally, and the bladder flap was created digitally. The bladder blade was reinserted. The lower uterine segment was incised in a transverse fashion with the scalpel. Upon entering the amniotic sac there was a small amount of clear amniotic fluid. The infant was delivered by total breech extraction. The cord was double clamped and cut after 1 minute. The infant was handed off to waiting RN and RT. The placenta was delivered by expression. The uterus was cleared of all clots and debris. The uterine incision was repaired with #1 chromic in a running interlocking fashion, and a second layer the same suture was used for an imbricating layer. Hemostasis was achieved. The tubes and ovaries were examined and were found to be normal. The gutters were cleared of all clots and debris. The bladder flap was reapproximated using 2-0 Vicryl in a running fashion. The parietal peritoneum was closed using 2-0 Vicryl in a running fashion. The fascia was reapproximated using 0 Vicryl in a running fashion. The subcutaneous layer was copiously irrigated with warm normal saline. 5 simple interrupted sutures of 3- 0 Vicryl were placed to reapproximate the subcutaneous layer. The skin was closed with 4-0 Monocryl in a subcuticular fashion. Steri-Strips were placed. An Aquacel dressing was placed. The uterus was expressed of a small amount of old blood. Sponge, lap, and instrument counts were correct x-2. The patient tolerated the procedure well, and was taken to PACU in stable condition. Complications: none Burton Baby 1: Gender: Female Presentation: breech Details: complete Placental Delivery Description: Expressed Cord Vessel Description: 3 Vessels and Clamped/Cut (after one minute) score (1 min): 8 score (5 min): 9 weight: 7 lb 5 oz Post-operative Condition: stable Disposition: PACU Aftercare: routine postop
[2022-07-11 09:47] VITALS: BP 109/72; PULSE 81; RESP 16; TEMP 36.8; O2SAT 98
[2022-07-11 09:52] VITALS: BP 106/71; PULSE 75; RESP 18; O2SAT 98
[2022-07-11 09:56] VITALS: BP 105/71; PULSE 81; RESP 18; O2SAT 98
[2022-07-11 10:12] VITALS: BP 103/57; PULSE 72; RESP 20; TEMP 36.7; O2SAT 99
[2022-07-11] MEDS: OXYCODONE IR 5 MG TABLET PO ×2 (10:58→12:12)
[2022-07-11] MEDS: KETOROLAC 30 MG/ML VIAL IV ×2 (15:20→21:51)
[2022-07-11] MEDS: ACETAMINOPHEN 325 MG TABLET 650 MG PO (15:21)
[2022-07-11] MEDS: OXYCODONE IR 10 MG TABLET PO ×2 (16:11→19:41)
[2022-07-12] MEDS: KETOROLAC 30 MG/ML VIAL IV (03:11)
[2022-07-12 06:18] LABS: Hematocrit 27.8 % (36-46); Hemoglobin 9.3 g/dL (12.0-16.0)
[2022-07-12] MEDS: OXYCODONE IR 5 MG TABLET PO ×2 (07:56→16:39)
[2022-07-12] MEDS: DOCUSATE 100 MG CAPSULE 200 MG PO (09:01)
[2022-07-12] MEDS: PRENATAL VIT,CALC/IRON/FOLIC 1 TABLET 1 TAB PO (09:01)
[2022-07-12] MEDS: OXYCODONE IR 10 MG TABLET PO ×2 (13:53→17:46)
[2022-07-12] MEDS: ACETAMINOPHEN 325 MG TABLET 650 MG PO ×2 (16:39→23:42)
[2022-07-12] MEDS: IBUPROFEN 600 MG TABLET PO ×2 (16:40→23:43)
--- NOTE | 2022-07-12 17:04 | P.PNOB_ITS ---
Subjective - OB Subjective Patient comments: no complaints, pain well controlled, tolerating diet, flatus present and other (Voided without the catheter) [place] baby status: doing well and nursing well (Pumping) feeding status: breast and bottle feeding Date Patient Seen: 07/12/22 Time Patient Seen: 08:45 Interval history: Postop day # 1 status post primary low-transverse section secondary to have persistent breech presentation. [place] catheter was removed. Patient has voided without the catheter. She is passing flatus. No nausea or vomiting. Pain well controlled. She is ambulating without assistance. Exam Vital Signs (past 8 hours): Oxygen Delivery Method Room Air Narrative Exam Narrative: Generally: Patient is sitting up in bed, no acute distress Lungs: Clear to auscultation bilaterally Cardiovascular: Regular rate and rhythm Fundus: Firm at U-1 Incision: Clean dry and intact with Aquacel dressing Extremities: Trace edema, negative Homans Objective Labs Result Diagrams: 07/12/22 05:39 Labs: Laboratory Results - last 24 hr 07/12/22 05:39 Hgb 9.3 L Hct 27.8 L Assessment & Plan Plan day: 1 plan OB: routine postop care Comments: consult Time Spent With Patient Time: Total time spent is greater than 50% in coordination of care (as documented) at patient's floor/unit and/or counseling patient: Time with patient: 15-24 minutes
[2022-07-13] MEDS: ACETAMINOPHEN 325 MG TABLET 650 MG PO (05:49)
[2022-07-13] MEDS: IBUPROFEN 600 MG TABLET PO (05:50)
[2022-07-13] MEDS: PRENATAL VIT,CALC/IRON/FOLIC 1 TABLET 1 TAB PO (10:04)
[2022-07-13] MEDS: DOCUSATE 100 MG CAPSULE 200 MG PO (10:04)
--- NOTE | 2022-07-27 11:37 | P.DS_ITS ---
Discharge Providers Provider Date of admission: 07/11/22 05:37 Discharge Date: 07/13/22 Primary care physician: Doctor Jonas MD Consults: 07/11/22 10:46 Consult to Configuration Management Consultant Routine Comment: Discharge provider: Sierra Santiago MD Summary Hospital Course Date Patient Seen: 07/13/22 Time Patient Seen: 09:50 Diagnoses: Thirty-nine weeks gestation Persistent breech presentation Primary low-transverse section Hospital Course: Patient is a 22-year-old 2 para 1011 who presented on July 11, 2022 for a scheduled primary low-transverse section due to a persistent breech presentation. She underwent this procedure without complication. Her postoperative course was unremarkable and she was discharged home on July 13, 2022. She was tolerating a diet. She was voiding without the catheter. She was passing flatus. was going well. She was ambulating without assistance. She is to follow-up in 1 week for Aquacel dressing removal. Peripartum Data Infant Delivery Method: Section Laceration Description: None Episiotomy description: None Procedures: Spinal anesthesia Primary low-transverse section complications: none Reva 1: Gender: Female Disposition of : home Status at Discharge Cognitive/behavioral status at discharge: oriented Functional status at discharge: independent ambulation Overall status at discharge: patient is progressing back to baseline Time Spent with Patient Time attestation: Total time spent providing and/or coordinating discharge services: Time spent: Less than 30 minutes Objective Labs Result Diagrams: 07/12/22 05:39 Exam Vital Signs (past 8 hours): Oxygen Delivery Method Room Air Narrative Exam Narrative: Generally: Patient sitting up in bed, nursing , no acute distress Lungs: Clear to auscultation bilaterally Cardiovascular: Regular rate and rhythm Fundus: Firm at U -1 Incision: Clean dry and intact with Aquacel dressing Extremities: 1+ edema, negative Homans Discharge Plan Discharge Plan Patient Disposition: Home Provider Discharge Comment: Call with fever, chills, or bleeding vaginally more than a pad in an hour Call with any redness or drainage around the bandage Tylenol 650 mg every 6 hours as needed Ibuprofen 600 mg every 6 hours as needed Discharge orders & Medications Prescriptions: Continued prenat.vits,raul,[id number] Tablet 1 tab PO DAILY Discontinued omeprazole 20 mg capsule,delayed release(DR/EC) 20 mg PO DAILY Qty: 30 5RF nystatin 100,000 unit/gram cream 1 applic topical TID PRN (Reason: external itching/irritation) Qty: 30 0RF No Action oxycodone 5 mg tablet 5 mg PO Q4H PRN (Reason: pain) Qty: 14 0RF Follow up/Referrals: Sierra Santiago MD [Physician] - 3-5 Days (See Dr Landa on 07/18 at 11:15 for dressing removal See Dr Santiago on 08/29 at 0945 for postop checkup Please report to office 15 minutes prior to appointment times) Diet/Activity/Treatments Diet: Regular Activity: No heavy lifting Nothing in the vagina for 6 weeks Skin/Wound/Dressing Care Report to your healthcare provider any signs of infection, such as:: chills, fever, increased pain, unusual drainage and unusual redness Dressing: Do not remove Visit Report/Discharge Packet Instructions: DI for , DI for Prescription Opioid Use Stand Alone Forms: Discharge: Care Discharge Data Primary Care Provider: Miscellaneous,Doctor
== END 2022-07-13 10:50 | disposition home or self-care (01) | DRG 788 ==
PROVIDERS: Admitting Provider Obstetrics & Gynecology; Referring Provider Obstetrics & Gynecology; Visit Provider Obstetrics & Gynecology
PROC: 10D00Z1 Extraction of Products of Conception, Low, Open Approach (ICD-10-PCS; CPT 59514; principal; 2022-07-11 07:45)
DX: O64.8XX0 Obstructed labor due to other malposition and malpresentation, not applicable or unspecified (principal); Z3A.39 39 weeks gestation of pregnancy; Z37.0 Single live birth; Z20.822 Contact with and (suspected) exposure to COVID-19
CPT/HCPCS: 36415; 59050; 59510; 59514; 85014; 85018; 85025; 86850; 86900; 86901; 87635; C9803; J0131; J0690; J1885; J2405; J2590